=== PATIENT | female | born 1995 | race Caucasian/White ===

== ENCOUNTER 2021-12-16 09:09 | Outpatient (CLI) | payer OTHER ==
--- NOTE | 2021-12-16 10:09 | SLEEP CARE CONSULTATION ---
Information from patient questionnaire entered by Wiley Soares MA. I have reviewed and concur with the information entered by Wiley Soares MA. This document represents the service I personally performed and the decisions made by , Clementine Corado ARNP. History of Present Illness Service Date and Time: 12/16/2021 0909 Reason for Visit: New patient (ONSET 06/11/2016, NO PRIORS) Chief Complaint: reports: Unrefreshed sleep, Excessive daytime sleepiness, Freq uent awakenings at night Date of Onset: 2 PLUS YEARS Usual bedtime: 9-10 PM Time it takes to fall asleep: 30-60 minutes Snores at night: Yes Observed to quit breathing while asleep: No Sleeps alone due to snoring: No Number of times waking at night: 3-5 Reasons for waking at night: reports: Other (unknown reasons). denies: Choking, Snoring, Gasping for air Toss, Turn, or Twitch while sleeping: Yes Recalls having dreams: Yes Usually gets out of bed at: 0600; weekends [id number] Feels refreshed in the morning: No Morning headache: No Sleepy or fatigued during the day: Yes Ever fallen asleep while driving: No Takes day naps: Yes (on weekends usually) Dreams during day naps: Yes Prior sleep studies: No Additional HPI information: I had the pleasure of seeing SYLVIA ZIMMERMAN today regarding the possibility of her having a sleep disorder. Her current complaints are unrefreshed sleep, excessive daytime sleepiness and frequent night awakenings. She states she has been having sleeping issues for a long time and she can feel like she can't get through the day without a nap. She tries to avoid naps on work days because she will sleep for 3-4 hours and affect her ability to go to sleep at night. She has had issues with falling asleep, staying asleep and not feeling rested in the morning. She will wake up frequently during the night but is able to go back to sleep after a little tossing and turning. She denies headaches in the morning or drowsy driving. She tells me that she has gained about 72 pounds over the last 5 years but she had these sleep issues before she gained so much weight. Her father has sleep apnea and uses a CPAP. 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 Patient is Single and lives in . Have you smoked in the past 12 months: Yes (vaping) Cigarettes per day (20/pack): 10 Years of smokin Quit date: 2019 Smoking Pack Years: 7.5 Alcohol use: Yes Alcohol amount and frequency: 1-2 x monthly Caffeine use: Yes Caffeine amount and frequency: 1-2 x daily Family History Family history of sleep disordered breathing: Yes Family Hx Sleep Apnea: Mother: Snoring, Father: Snoring, Sleep apnea - Treated, Grandparent: Snoring Allergies and Home Medications Known drug allergies: No Drug allergies reviewed: Yes (NKDA) Home medication list reviewed: Yes Allergy and home medication list: Medications: Prozac Review of Systems Weight gain over past 5 years: 72 lbs Cardiovascular: denies: high blood pressure Gastrointestinal: denies: heartburn Neurological: denies: headaches, head trauma Psychiatric: reports: anxiety. denies: depression, mood disorder Ear/Nose/Throat: reports: tonsillectomy, wisdom teeth removed. denies: dry mouth/throat, injury to nose Endocrine: reports: sluggishness, increased appetite. denies: thyroid disease Immunologic: denies: allergies to food or environment Physical Exam Blood Pressure: 120/70 (RESP 18, PULSE 81, LEFT) Cuff size: wrist Heart Rate: 81 O2 Saturation: 98 (PAPER MASK) Height: 5 ft 5 in Weight: 241 lb (UNIFORM BOOTS) Weight change since last visit: LOSE, EXCERCISE, PORTIONS Body Mass Index: 40.1 BMI Classification: Morbidly Obese Neck circumference: 13.5 (INCHES) Mouth and throat: normal Soft palate: normal Hard palate: normal Uvula: normal Uvula visualization: 100% Mallampati Class I Tongue: enlarged in size with teeth lopez on lateral edges Tonsils: absent bilaterally Neck: normal w/o lymphadenopathy or thyromegaly Heart: regular rate and rhythm Lungs: clear bilaterally Impression and Plan 1. Suspected Obstructive Sleep Apnea-Hypopnea Syndrome, as suggested by a history of loud and irregular snoring, frequent awakening during the night, unrefreshed sleep, cognitive impairment, and excessive daytime sleepiness. Narrow oropharynx and obesity are common predisposing factors for obstructive sleep apnea-hypopnea syndrome. I recommend proceeding to polysomnography to confirm the diagnosis and to assess severity. If the patient has significant sleep disordered breathing, a manual CPAP titration study will also be performed to find the optimal treatment pressure. I informed the patient of what the sleep studies involve and after some discussion, obtained agreement to proceed. The pathophysiology of obstructive sleep apnea-hypopnea syndrome was discussed with the patient and health risks of cardiovascular and cerebrovascular disease if not treated. Risks of drowsy driving discussed in detail and patient advised to avoid long distance driving and to cake puller at the first sign of drowsiness. Patient agreed to plan. * Schedule polysomnography * Avoid long distance driving or driving when feeling sleepy. * Avoid alcohol, sedative and muscle relaxant around bedtime. * Attempt to lose weight. * Review instructions provided by trained office staff on how to prepare for the sleep study. * Return for follow-up after sleep study completed. Counseling Topics: Weight loss health impact Visit Type: In Office Time Spent with Patient (minutes): 30 Provider Statement: I spent 100% of the Face to Face Visit with the patient with greater than 50% spent counseling the patient and coordination of care.
[2021-12-16 10:10] VITALS: BP 120/70
== END 2021-12-16 09:10 | disposition home or self-care (01) ==
LOC: SC 09:09
PROVIDERS: ATTEND Nurse Practitioner Family
DX: R06.83 Snoring (principal); G47.8 Other sleep disorders; R51.9 Headache, unspecified; G47.10 Hypersomnia, unspecified; R53.83 Other fatigue; F17.290 Nicotine dependence, other tobacco product, uncomplicated; E66.01 Morbid (severe) obesity due to excess calories; Z68.41 Body mass index [BMI] 40.0-44.9, adult
CPT/HCPCS: 99203; 99212

== ENCOUNTER 2022-01-02 12:26 | Outpatient (CLI) | payer OTHER | END 2022-01-02 12:27 | disposition home or self-care (01) | LOC: SC 12:26 | PROVIDERS: ATTEND Nurse Practitioner Family | DX: G47.33 Obstructive sleep apnea (adult) (pediatric) (principal); R09.02 Hypoxemia; E66.01 Morbid (severe) obesity due to excess calories; Z68.41 Body mass index [BMI] 40.0-44.9, adult | CPT/HCPCS: 95806 ==

== ENCOUNTER 2023-03-22 15:38 | Emergency (ER) | payer OTHER ==
[2023-03-22 15:52] VITALS: BP 135/89; O2SAT 96
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
== END 2023-03-22 15:55 | disposition home or self-care (01) ==
LOC: ED 15:38
DX: Z04.1 Encounter for examination and observation following transport accident (principal); M25.552 Pain in left hip; M25.562 Pain in left knee
CPT/HCPCS: 99281; 99283